=== PATIENT | male | born 1945 | race Caucasian/White ===

== ENCOUNTER 2021-03-06 06:00 | Day surgery (SDC) | payer MEDICARE ==
[2021-03-05 09:16] LABS: EOSINOPHILS % (AUTO) 1.2 % (0-6); HEMATOCRIT 42.8 % (42.0-52.0); HEMOGLOBIN 14.1 g/dl (14.0-17.9); LYMPHOCYTES % (AUTO) 26.9 % (21-51); MEAN CORPUSCULAR HEMOGLOBIN 28.2 PG (27.0-31.0); MEAN CORPUSCULAR HGB CONC 32.9 g/dL (33.0-36.5); MEAN CORPUSCULAR VOLUME 85.9 FL (78-98); MONOCYTES # (AUTO) 0.8 X10'3 (0-0.9); MONOCYTES % (AUTO) 22.2 % (2-12); NEUTROPHILS # (AUTO) 1.7 X10'3 (1.8-7.7); NEUTROPHILS % (AUTO) 48.7 % (42-75); PLATELET COUNT 165 X10'3 (140-440); RED BLOOD COUNT 4.98 X10'6 (4.70-6.10); RED CELL DISTRIBUTION WIDTH 14.5 % (11.5-14.5); WHITE BLOOD COUNT 3.6 X10'3 (4.5-11.0)
[2021-03-05 09:24] LABS: ALBUMIN 3.6 G/DL (3.4-5.0); ANION GAP 10 (8-16); BLOOD UREA NITROGEN 27 MG/DL (7-18); BUN/CREATININE RATIO 24.8 (5.4-32.0); CALCIUM 8.7 MG/DL (8.5-10.1); CHLORIDE 102 MMOL/L (99-107); CREATININE 1.09 MG/DL (0.60-1.10); GLUCOSE 84 MG/DL (70-104); POTASSIUM 4.6 MMOL/L (3.5-5.1); SODIUM 136 MMOL/L (135-145); TOTAL CARBON DIOXIDE 23.8 MMOL/L (24-32); eGFR 66 ML/MIN
[2021-03-05 09:28] LABS: PARTIAL THROMBOPLASTIN TIME 32 SECONDS (22-32)
[2021-03-05 13:07] LABS: TOTAL CELLS COUNTED 100
[2021-03-05 13:14] LABS: PLATELET ESTIMATE NORMAL
[2021-03-06] VITALS (11 sets, daily range): BP systolic 97–141; BP diastolic 61–95
[~2021-03-06] VITALS: Ht 182.9 cm; Wt 92.4 kg
[2021-03-06] MEDS ORDERED: diphenhydrAMINE 25mg capsule PO PRN (06:10)
[2021-03-06] MEDS ORDERED: LORazepam 0.5 MG tablet PO PRN (06:10)
[2021-03-06] MEDS ORDERED: normal saline 1,000 ML IV SCH ×2 (06:10→09:45)
[2021-03-06] MEDS ORDERED: APIX2.5T PO (06:33)
[2021-03-06] MEDS ORDERED: CHOL50004 PO (06:38)
[2021-03-06] MEDS ORDERED: FURO-150 PO (06:47)
[2021-03-06] MEDS ORDERED: HYDR30EM PO (06:47)
[2021-03-06] MEDS ORDERED: CARV-50 PO (06:48)
[2021-03-06] MEDS ORDERED: POTA10TA10 PO (06:49)
[2021-03-06] MEDS ORDERED: SPIR25TA5 PO (06:50)
[2021-03-06] MEDS ORDERED: LOSA25TA96 PO (06:50)
[2021-03-06] MEDS ORDERED: LIDOcaine/PRILOcaine 5gm cream TP ONE (07:20)
[2021-03-06] MEDS ORDERED: nitroGLYCERIN-Tridil 50MG/D5W 250 ML IV ONE (07:38)
[2021-03-06] MEDS ORDERED: verapamil 2.5 mg/ml inj IV ONE (07:38)
[2021-03-06] MEDS ORDERED: iohexol 350 MG/ML 50ML vial IV ONE (07:39)
[2021-03-06] MEDS ORDERED: midazolam 1 mg/ML 2ml injection ONE (07:39)
[2021-03-06] MEDS ORDERED: iohexol 350MG/ML 100ml bottle IV ONE (07:39)
[2021-03-06] MEDS ORDERED: heparin 1,000unit/ml 10ml vial 10 ML ONE (07:39)
[2021-03-06] MEDS ORDERED: fentaNYL/PF 50MCG/1 ML 2ML syringe ONE (07:39)
[2021-03-06] MEDS ORDERED: LIDOcaine 1% 30ml preserv. free vial ONE (07:39)
[2021-03-06] MEDS ORDERED: furosemide 20 MG/2 ML vial IV ONE (09:45)
== END 2021-03-06 14:50 | disposition home or self-care (01) ==
LOC: SSTAY O 06:00
PROVIDERS: ATTEND Internal Medicine Cardiovascular Disease
DX: R94.39 Abnormal result of other cardiovascular function study (principal); I25.10 Atherosclerotic heart disease of native coronary artery without angina pectoris; I48.91 Unspecified atrial fibrillation; I42.0 Dilated cardiomyopathy; I11.0 Hypertensive heart disease with heart failure; I50.20 Unspecified systolic (congestive) heart failure; I08.1 Rheumatic disorders of both mitral and tricuspid valves; Z98.890 Other specified postprocedural states; Z79.01 Long term (current) use of anticoagulants; Z79.899 Other long term (current) drug therapy; Z80.9 Family history of malignant neoplasm, unspecified
CPT/HCPCS: 36415; 76937; 80048; 85025; 85610; 85730; 93005; 93460; 99152; 99153; C1760; C1769; C1894; J1644; J2001; J2250; J3010; J7030; Q0163; Q9967; 85007; A4620; A5120; A6258; C1751; J3490

== ENCOUNTER 2021-04-16 07:00 | Day surgery (SDC) | payer MEDICARE ==
[2021-04-15 08:33] LABS: BASOPHILS % (AUTO) 1.1 % (0-1); EOSINOPHILS # (AUTO) 0.1 X10'3 (0-0.9); EOSINOPHILS % (AUTO) 2.5 % (0-6); HEMOGLOBIN 13.5 g/dl (14.0-17.9); LYMPHOCYTES # (AUTO) 1.5 X10'3 (1.1-4.8); LYMPHOCYTES % (AUTO) 38.9 % (21-51); MEAN CORPUSCULAR HEMOGLOBIN 27.6 PG (27.0-31.0); MEAN CORPUSCULAR VOLUME 83.7 FL (78-98); MEAN PLATELET VOLUME 8.5 FL (7.4-10.4); MONOCYTES # (AUTO) 0.7 X10'3 (0-0.9); MONOCYTES % (AUTO) 18.6 % (2-12); NEUTROPHILS # (AUTO) 1.5 X10'3 (1.8-7.7); NEUTROPHILS % (AUTO) 38.9 % (42-75); PLATELET COUNT 192 X10'3 (140-440); RED CELL DISTRIBUTION WIDTH 14.8 % (11.5-14.5); WHITE BLOOD COUNT 3.9 X10'3 (4.5-11.0)
[2021-04-15 09:27] LABS: PLATELET ESTIMATE NORMAL; TOTAL CELLS COUNTED 100
[2021-04-15 09:49] LABS: ALANINE AMINOTRANSFERASE 63 U/L (12-78); ALBUMIN/GLOBULIN RATIO 1.1 (1.1-1.5); ANION GAP 10 (8-16); ASPARTATE AMINO TRANSFERASE 39 U/L (10-37); BILIRUBIN,TOTAL 1.1 MG/DL (0.1-1.0); BLOOD UREA NITROGEN 33 MG/DL (7-18); BUN/CREATININE RATIO 28.2 (5.4-32.0); CALCIUM 8.9 MG/DL (8.5-10.1); CHLORIDE 103 MMOL/L (99-107); CREATININE 1.17 MG/DL (0.60-1.10); GLUCOSE 95 MG/DL (70-104); POTASSIUM 4.8 MMOL/L (3.5-5.1); SODIUM 138 MMOL/L (135-145); TOTAL CARBON DIOXIDE 24.9 MMOL/L (24-32); TOTAL PROTEIN 7.7 G/DL (6.4-8.2); eGFR 61 ML/MIN
[2021-04-15 11:16] LABS: ALKALINE PHOSPHATASE 98 IU/L (46-116)
[2021-04-16] VITALS (16 sets, daily range): BP systolic 99–130; BP diastolic 57–86
[~2021-04-16] VITALS: Ht 182.9 cm; Wt 89.9 kg
[~2021-04-16 07:00] MED LIST: APIX2.5T PO; CARV-50 PO; CHOL50004 PO; FURO-150 PO; HYDR30EM PO; LOSA25TA96 PO; POTA10TA10 PO; SPIR25TA5 PO
[2021-04-16] MEDS ORDERED: normal saline 1000ml 1,000 ML IV SCH (07:25)
[2021-04-16] MEDS ORDERED: diphenhydrAMINE 25mg capsule PO ONE (07:25)
[2021-04-16] MEDS ORDERED: MIDAZolam 1mg/ml 10ml vial IV ONE (07:25)
[2021-04-16] MEDS ORDERED: amiodarone 150mg/dext, iso-os 100 ML IV ONE (07:25)
[2021-04-16] MEDS ORDERED: fentaNYL/PF 50MCG/1 ML 2ML syringe IV ONE (07:25)
[2021-04-16] MEDS ORDERED: LORazepam 0.5 MG tablet PO ONE (07:25)
[2021-04-16] MEDS ORDERED: atropine 0.1mg/ml 10ml syringe IV ONE (07:25)
[2021-04-16] MEDS ORDERED: morphine 10mg/ml inj. IV ONE (07:25)
[2021-04-16] MEDS ORDERED: FURO-150 PO (07:30)
[2021-04-16] MEDS ORDERED: APIX5TAB3 PO (07:30)
[2021-04-16] MEDS ORDERED: AMIO200T61 PO (07:30)
== END 2021-04-16 11:20 | disposition home or self-care (01) ==
LOC: SSTAY O 07:00
PROVIDERS: ATTEND Internal Medicine Cardiovascular Disease
DX: I48.91 Unspecified atrial fibrillation (principal); I25.10 Atherosclerotic heart disease of native coronary artery without angina pectoris; I42.0 Dilated cardiomyopathy; I11.0 Hypertensive heart disease with heart failure; I50.9 Heart failure, unspecified; I08.1 Rheumatic disorders of both mitral and tricuspid valves; Z72.89 Other problems related to lifestyle; Z79.899 Other long term (current) drug therapy; Z98.890 Other specified postprocedural states; Z80.9 Family history of malignant neoplasm, unspecified
CPT/HCPCS: 36415; 80053; 85025; 92960; 93005; 94760; 94799; J0461; J2250; J2270; J7030; 85007

== ENCOUNTER 2022-12-17 10:02 | Outpatient (CLI) | payer MEDICARE ==
[~2022-12-17 10:02] MED LIST changes: +AMIO200T61 PO; -APIX2.5T PO; +APIX5TAB3 PO; +POTA-188 PO; -POTA10TA10 PO
== END 2022-12-17 23:59 | disposition home or self-care (01) ==
LOC: RAD 10:02
PROVIDERS: ATTEND Internal Medicine Cardiovascular Disease
DX: I08.8 Other rheumatic multiple valve diseases (principal); R06.02 Shortness of breath
CPT/HCPCS: 93306